=== PATIENT | male | born 1980 | race Caucasian/White ===

== ENCOUNTER 2018-08-07 02:26 | Emergency (ER) | payer OTHER, SELFPAY ==
[2018-08-07 02:28] VITALS: BP 134/74; PULSE 85; RESP 16; TEMP 36.4; O2SAT 94; BMI 49.5
--- NOTE | 2018-08-07 02:58 | ED.DCSUM_ITS ---
- ER Visit Summary Date of Service: 08/07/18 Chief Complaint: My skin feels like it is on fire. History of Present Illness: The patient is a 38 M who presents with a burning sensation on his skin. He states began about 2 hours ago. It is all over. He is concerned this may have been related to Lovenox which she started yesterday. This was prophylactic before ankle surgery. However his Lovenox had been administered greater than 12 hours before. He denies any fever chest pain shortness of breath nausea vomiting. Review of systems otherwise negative. No history of prior similar symptoms. Physical Examination: Afebrile vitals are unremarkable Moist mucous membranes Resting comfortably no distress Heart regular rate and rhythm Lungs are clear Abdomen soft Sensation intact light touch skin warm and dry no rash no tenderness or sensitivity/hyperesthesia Test Results: Not indicated Emergency Department Course and Treatment: Patient has a benign physical examination. I explained I am uncertain of what caused the burning sensation on his skin. However I feel it is unlikely related to the Lovenox. This is not a common side effect that I am aware of and had been administered many hours before. Patient advised to follow-up as an outpatient as needed. I offered Tylenol here which he declined. Patient discharged. Treatment Plan: [] Disposition: Discharge Impression: Burning sensation of skin This note was generated with [employer] dictation software. It may contain incorrect words, spelling, and punctuation that were not noted in review of the chart prior to signing ED Disposition - Plan for ED Patient: Chief Complaint: Other, Pain/Inj Referrals: Rex Umanzor DO [Primary Care Provider] -
== END 2018-08-07 03:19 | disposition home or self-care (01) ==
LOC: ED 03:02
PROVIDERS: Emergency Provider Emergency Medicine; Family Provider Student in an Organized Health Care Education/Training Program; PCP Student in an Organized Health Care Education/Training Program
DX: R20.8 Other disturbances of skin sensation (principal); E66.9 Obesity, unspecified
CPT/HCPCS: 99282